=== PATIENT | female | born 1940 | race Caucasian/White ===

== ENCOUNTER 2023-03-26 12:16 | Outpatient (OUT) | payer MEDICARE, SELFPAY ==
--- NOTE | 2023-03-26 12:29 | US_ITS ---
[address] [address] Patient Name: SURY GUTIERREZ MRN: [id number] date: 1940 Sex: F Assigned Patient Location: [facility] Current Patient Location: Accession/Order Number: [id number] Exam Date: 03/26/2023 12:30 Report Date: 03/30/2023 07:22 At the request of: DONAL RIVAS Procedure: US venous doppler LE RT EXAMINATION: US venous doppler LE RT HISTORY: Right Leg Pain M79.604, Localized Edema R60.0 COMPARISON: No relevant comparison available. TECHNIQUE: Grayscale, color and Doppler ultrasound FINDINGS: Region: Right leg From his: None Flow: Normal Augmentation: Normal Compressibility: Normal 5.3 cm complex fluid collection medial popliteal fossa, a popliteal cyst is favored US/US venous doppler LE RT IMPRESSION: No deep or superficial vein thrombus in the right leg *Exam performed in accordance with [facility] practice guidelines- Peripheral venous ultrasound, December 07, 2009. Electronically authenticated by: FLORINDA ROMERO Date: 03/30/2023 07:22
== END 2023-03-26 12:17 | disposition home or self-care (01) ==
LOC: RAD 12:21
PROVIDERS: PCP Family Medicine; Visit Provider Family Medicine
DX: R60.0 Localized edema (principal); M79.604 Pain in right leg
CPT/HCPCS: 93971

== ENCOUNTER 2023-04-21 16:27 | Emergency (ER) | payer MEDICARE, SELFPAY ==
[2023-04-21 16:36] VITALS: BP 161/79; PULSE 82; RESP 16; O2SAT 95; BMI 28.3
--- NOTE | 2023-04-21 16:59 | ED_ITS ---
Documented by User: MALINI Haro 04/21/23 17:50 HPI - General Adult General Chief complaint: GI Bleed Stated complaint: BLOOD IN STOOL Time Seen by Provider: 04/21/23 16:46 Source: patient and family Mode of arrival: walk-in Limitations: no limitations History of Present Illness HPI narrative: patient is an 83-year-old female who presents to the emergency department for the evaluation of rectal bleeding that she noted while wiping. She states she urinated normally and while wiping herself noted bright red blood per rectum. She denies any abdominal pain, fevers, chills, nausea, vomiting. She has no history of issues with rectal bleeding. She has not had any continued active bleeding, it was only with wiping. She has not passed any clots. She was not straining to urinate and has not been straining to have a bowel movement although daughter reports she does have a history of constipation in the past. She has mild dementia but is able to answer questions appropriately. Related Data Previous Rx's Medication Instructions Recorded hydrocortisone 1 %-pramoxine 1 % 1 applic NE TID PRN hemorrhoids 04/21/23 rectal foam (Proctofoam HC) #10 grams Allergies Allergy/AdvReac Type Severity Reaction Status Date / Time No Known Drug Allergies Allergy Verified 04/21/23 16:36 Review of Systems ROS Constitutional Denies: fever or chills Ears, nose, mouth, and throat Denies: throat pain Cardiovascular Denies: chest pain Respiratory Denies: shortness of breath or cough Gastrointestinal Denies: abdominal pain, nausea or vomiting Musculoskeletal Denies: back pain or neck pain Neurological Denies: headache Hematologic/Lymphatic Denies: easy bruising Allergic/Immunologic Denies: hives PFSH PFS Social History Smoking status: Never smoker Exam Narrative Exam Narrative: Gen.: Awake, alert, in no distress; resting comfortably on exam cart Head: Normocephalic, atraumatic ENT: Moist mucous membranes Respiratory: No respiratory distress Gastrointestinal: Abdomen is soft, nondistended and nontender to palpation Rectal: rectum with a swollen hemorrhoid but no clots or thrombosis noted,with two other associated flat hemorrhoids noted. No active bleeding. No masses appreciated in the rectum. Extremities: Moves extremities equally, no injuries noted Psych: Normal mood and affect Neuro: No focal neuro deficit Skin: Warm, dry, intact Constitutional Vital Signs, click to edit/add: Last Vital Signs Pulse 82 04/21/23 16:36 Resp 16 04/21/23 16:36 BP 161/79 H 04/21/23 16:36 Pulse Ox 95 04/21/23 16:36 O2 Del Method Room Air 04/21/23 16:36 Course Vital Signs Vital signs: Vital Signs Pulse Rate 82 04/21/23 16:36 Respiratory Rate 16 04/21/23 16:36 Blood Pressure 161/79 H 04/21/23 16:36 Pulse Oximetry 95 04/21/23 16:36 Oxygen Delivery Method Room Air 04/21/23 16:36 Pulse Rate 82 04/21/23 16:36 Respiratory Rate 16 04/21/23 16:36 Blood Pressure 161/79 H 04/21/23 16:36 Pulse Oximetry 95 04/21/23 16:36 Oxygen Delivery Method Room Air 04/21/23 16:36 Medical Decision Making [facility] Narrative Medical decision making narrative: rectal exam shows the patient has a swollen hemorrhoid that is not thrombosed, likely the source of her bleeding. no gross blood on urine specimen, and no evidence of urinary tract infection. Abdomen is soft and benign in the Emergency Room. CBC is within normal limits. Patient will be given Proctofoam and a general surgery referral for her hemorrhoids. Return to the emergency department if symptoms change or worsen. Medical Records Medical records reviewed: Yes I reviewed the patient's medical records Lab Data Lab results reviewed: Yes I reviewed the patient's lab results Labs: Lab Results 04/21/23 04/21/23 Range/Units 17:05 17:31 WBC 9.6 (4.0-11.0) 10^3/uL RBC 5.08 (4.20-5.40) 10^6/uL Hgb 13.0 (12.0-16.0) g/dL Hct 42.0 (36.0-48.0) % MCV 82.7 (81.0-99.0) fL MCH 25.6 L (26.7-34.0) pg MCHC 31.0 (29.9-35.2) g/dL RDW 15.3 H (11.0-15.0) % Plt Count 311 (150-450) 10^3/uL MPV 10.0 (9.5-13.5) fL Neut % (Auto) 77.4 H (43.0-75.0) % Lymph % (Auto) 11.6 L (20.5-60.0) % [place] % (Auto) 8.3 (1.7-12.0) % Eos % (Auto) 1.5 (0.9-7.0) % Baso % (Auto) 0.7 (0.2-2.0) % Neut # (Auto) 7.4 H (1.4-6.5) 10^3/uL Lymph # (Auto) 1.1 L (1.2-3.8) 10^3/uL [place] # (Auto) 0.8 (0.3-0.8) 10^3/uL Eos # (Auto) 0.1 (0.0-0.7) 10^3/uL Baso # (Auto) 0.1 (0.0-0.1) 10^3/uL Abs Immat Gran (auto) 0.05 H (0.00-0.03) 10^3/uL Imm/Tot Granulo (auto) 0.5 (0.0-0.5) % Urine Color Lt. yellow (YELLOW) Urine Clarity Clear (CLEAR) Urine pH 5.5 (5.0-9.0) Ur Specific [place] 1.020 (1.005-1.025) Urine Protein Negative (NEG/TRACE) mg/dL Urine Glucose (UA) Negative (NEGATIVE) mg/dL Urine Ketones Negative (NEGATIVE) mg/dL Urine Occult Blood Trace-i (NEGATIVE) Urine Nitrite Negative (NEGATIVE) Urine Bilirubin Negative (NEGATIVE) Urine Urobilinogen 0.2 (0.2-1.0) EU/dL Ur Leukocyte Esterase Negative (NEGATIVE) Urine RBC 0-2 (0-2) #/HPF Urine WBC None seen (NONE SEEN) #/HPF Ur Squamous Epith Cells Rare (NONE/RARE) #/LPF Urine Crystals None seen (None Seen) #/HPF Urine Bacteria Trace A (NONE SEEN) #/HPF Urine Casts None seen (NONE SEEN) #/LPF Urine Mucus None seen (NONE SEEN) Ur Culture Indicated? No Discharge Plan Discharge Chief Complaint: GI Bleed Clinical Impression: Hemorrhoids Patient Disposition: Home, Self-Care Time of Disposition Decision: 17:47 Condition: Good Prescriptions / Home Meds: New Proctofoam HC 1-1 % foam 1 applic NE TID PRN (Reason: hemorrhoids) Qty: 10 0RF Instructions: Hemorrhoids (ED), Rectal Bleeding (ED) Additional Instructions: Follow up with general surgery - Dr. Molina [phone] Stand Alone Forms: Portal Instructions Referrals: Ricky Leung MD [Primary Care Provider] - 1 week Discharge Date/Time: 04/21/23 18:05 Documented by User: Tyrell Nichols MD 04/21/23 19:53 HPI - General Adult General Chief complaint: GI Bleed Stated complaint: BLOOD IN STOOL Time Seen by Provider: 04/21/23 16:46 Related Data Previous Rx's Medication Instructions Recorded hydrocortisone 1 %-pramoxine 1 % 1 applic NE TID PRN hemorrhoids 04/21/23 rectal foam (Proctofoam HC) #10 grams Allergies Allergy/AdvReac Type Severity Reaction Status Date / Time No Known Drug Allergies Allergy Verified 04/21/23 16:36 PFSH PFSH Social History Smoking status: Never smoker Exam Constitutional Vital Signs, click to edit/add: Last Vital Signs Pulse 82 04/21/23 16:36 Resp 16 04/21/23 16:36 BP 161/79 H 04/21/23 16:36 Pulse Ox 95 04/21/23 16:36 O2 Del Method Room Air 04/21/23 16:36 Course Vital Signs Vital signs: Vital Signs Pulse Rate 82 04/21/23 16:36 Respiratory Rate 16 04/21/23 16:36 Blood Pressure 161/79 H 04/21/23 16:36 Pulse Oximetry 95 04/21/23 16:36 Oxygen Delivery Method Room Air 04/21/23 16:36 Pulse Rate 82 04/21/23 16:36 Respiratory Rate 16 04/21/23 16:36 Blood Pressure 161/79 H 04/21/23 16:36 Pulse Oximetry 95 04/21/23 16:36 Oxygen Delivery Method Room Air 04/21/23 16:36 Medical Decision Making MDM Narrative Medical decision making narrative: rectal exam shows the patient has a swollen hemorrhoid that is not thrombosed, likely the source of her bleeding. no gross blood on urine specimen, and no evidence of urinary tract infection. Abdomen is soft and benign in the Emergency Room. CBC is within normal limits. Patient will be given Proctofoam and a general surgery referral for her hemorrhoids. Return to the emergency department if symptoms change or worsen. I, Dr Nichols, have reviewed the above progress note and course of action in the ER; agree with the above. I have personally seen and evaluated this patient, gone over history and physical, and discussed disposition and treatment plan with the patient. Lab Data Labs: Lab Results 04/21/23 04/21/23 Range/Units 17:05 17:31 WBC 9.6 (4.0-11.0) 10^3/uL RBC 5.08 (4.20-5.40) 10^6/uL Hgb 13.0 (12.0-16.0) g/dL Hct 42.0 (36.0-48.0) % MCV 82.7 (81.0-99.0) fL MCH 25.6 L (26.7-34.0) pg MCHC 31.0 (29.9-35.2) g/dL RDW 15.3 H (11.0-15.0) % Plt Count 311 (150-450) 10^3/uL MPV 10.0 (9.5-13.5) fL Neut % (Auto) 77.4 H (43.0-75.0) % Lymph % (Auto) 11.6 L (20.5-60.0) % [place] % (Auto) 8.3 (1.7-12.0) % Eos % (Auto) 1.5 (0.9-7.0) % Baso % (Auto) 0.7 (0.2-2.0) % Neut # (Auto) 7.4 H (1.4-6.5) 10^3/uL Lymph # (Auto) 1.1 L (1.2-3.8) 10^3/uL [place] # (Auto) 0.8 (0.3-0.8) 10^3/uL Eos # (Auto) 0.1 (0.0-0.7) 10^3/uL Baso # (Auto) 0.1 (0.0-0.1) 10^3/uL Abs Immat Gran (auto) 0.05 H (0.00-0.03) 10^3/uL Imm/Tot Granulo (auto) 0.5 (0.0-0.5) % Urine Color Lt. yellow (YELLOW) Urine Clarity Clear (CLEAR) Urine pH 5.5 (5.0-9.0) Ur Specific [place] 1.020 (1.005-1.025) Urine Protein Negative (NEG/TRACE) mg/dL Urine Glucose (UA) Negative (NEGATIVE) mg/dL Urine Ketones Negative (NEGATIVE) mg/dL Urine Occult Blood Trace-i (NEGATIVE) Urine Nitrite Negative (NEGATIVE) Urine Bilirubin Negative (NEGATIVE) Urine Urobilinogen 0.2 (0.2-1.0) EU/dL Ur Leukocyte Esterase Negative (NEGATIVE) Urine RBC 0-2 (0-2) #/HPF Urine WBC None seen (NONE SEEN) #/HPF Ur Squamous Epith Cells Rare (NONE/RARE) #/LPF Urine Crystals None seen (None Seen) #/HPF Urine Bacteria Trace A (NONE SEEN) #/HPF Urine Casts None seen (NONE SEEN) #/LPF Urine Mucus None seen (NONE SEEN) Ur Culture Indicated? No Discharge Plan Discharge Chief Complaint: GI Bleed Clinical Impression: Hemorrhoids Patient Disposition: Home, Self-Care Time of Disposition Decision: 17:47 Condition: Good Prescriptions / Home Meds: New Proctofoam HC 1-1 % foam 1 applic NE TID PRN (Reason: hemorrhoids) Qty: 10 0RF Instructions: Hemorrhoids (ED), Rectal Bleeding (ED) Additional Instructions: Follow up with general surgery - Dr. Molina [phone] Stand Alone Forms: Portal Instructions Referrals: Ricky Leung MD [Primary Care Provider] - 1 week Discharge Date/Time: 04/21/23 18:05
[2023-04-21 17:27] LABS: Basophils Absolute Auto 0.1 10^3/uL (0.0-0.1); Basophils Percent Auto 0.7 % (0.2-2.0); Eosinophils Absolute Auto 0.1 10^3/uL (0.0-0.7); Eosinophils Percent Auto 1.5 % (0.9-7.0); Immature Granulocytes Abs Auto 0.05 10^3/uL (0.00-0.03); Immature Granulocytes Pct Auto 0.5 % (0.0-0.5); Lymphocytes Absolute Auto 1.1 10^3/uL (1.2-3.8); Lymphocytes Percent Auto 11.6 % (20.5-60.0); Mean Corpuscular Hemoglobin 25.6 pg (26.7-34.0); Mean Corpuscular Volume 82.7 fL (81.0-99.0); Monocytes Absolute Auto 0.8 10^3/uL (0.3-0.8); Monocytes Percent Auto 8.3 % (1.7-12.0); Neutrophils Absolute Auto 7.4 10^3/uL (1.4-6.5); Neutrophils Percent Auto 77.4 % (43.0-75.0); Platelet Count 311 10^3/uL (150-450); Red Blood Count 5.08 10^6/uL (4.20-5.40); Red Cell Distribution Width 15.3 % (11.0-15.0); White Blood Count 9.6 10^3/uL (4.0-11.0)
[2023-04-21 17:44] LABS: Bilirubin Urine NEGATIVE (NEGATIVE); Blood Urine TRACE-I (NEGATIVE); Clarity Urine CLEAR (CLEAR); Color Urine LT. YELLOW (YELLOW); Glucose Urine UA NEGATIVE (NEGATIVE); Ketones Urine NEGATIVE (NEGATIVE); Leukocyte Esterase Urine NEGATIVE (NEGATIVE); Nitrite Urine NEGATIVE (NEGATIVE); Protein Urine NEGATIVE (NEG/TRACE); Urobilinogen Urine 0.2 EU/dL (0.2-1.0); pH Urine 5.5 (5.0-9.0)
[2023-04-21 17:45] LABS: Urine Microscopic Indicated YES
[2023-04-21 17:49] LABS: Bacteria Urine TRACE #/HPF (NONE SEEN); Cast Seen? NONE SEEN #/LPF (NONE SEEN); Crystals Seen? None Seen #/HPF (None Seen); Mucus Urine NONE SEEN (NONE SEEN); RBC Urine 0-2 #/HPF (0-2); Squamous Epithelial Cell Urine RARE #/LPF (NONE/RARE); WBC Urine NONE SEEN #/HPF (NONE SEEN)
[2023-04-21 17:50] LABS: Urine Culture Indicated NO
== END 2023-04-21 18:05 | disposition home or self-care (01) ==
PROVIDERS: Physician Assistant; Emergency Provider Emergency Medicine; PCP Family Medicine
DX: K64.9 Unspecified hemorrhoids (principal); F03.90 Unspecified dementia, unspecified severity, without behavioral disturbance, psychotic disturbance, mood disturbance, and anxiety
CPT/HCPCS: 36415; 81001; 81003; 85025; 99284

== ENCOUNTER 2023-07-09 12:24 | Outpatient (OUT) | payer MEDICARE, SELFPAY ==
--- NOTE | 2023-07-09 | VEIN_ITS ---
Patient: SURY GUTIERREZ Exam Date: 07/09/2023 : 1940 Gender:F Ordering : DR Ricky Leung . Admission #: [id number] Family : DR FLORINDA ROMERO M.D. Order #: [id number] CLICK HERE TO VIEW EXAM RADIOLOGY REPORT PROCEDURE: VC EXT VENOUS REFLUX CROW LMTD COMPARISON: None. INDICATIONS: Edema leg R60.0 TECHNIQUE: Duplex imaging of the lower extremity to assess the deep and superficial venous system for the presence of deep or superficial venous incompetence and to document the location and severity of disease. The study includes evaluation of the great saphenous vein (GSV), anterior accessory saphenous vein (AASV) and small saphenous vein (SSV). Patient scanned in reverse Trendelenburg and standing. FINDINGS: RIGHT LOWER EXTREMITY: Saphenofemoral Junction Reflux: Yes 6.7mm 0.9 sec GSV: Diam (mm) Reflux/ Time (sec) Proximal Thigh 3.3 Yes 0.8 Mid Thigh 2.7 Yes 0.9 Distal Thigh 1.6 No Prox Calf 2.9 No Mid Calf 2.0 No Saphenopopliteal Junction Reflux: 2.7mm Yes 0.4 SSV: Proximal Calf 1.8 Yes Mid Calf 1.6 No AASV: Proximal Thigh 4.2 No Mid Thigh 3.2 0.9 Distal Thigh Thrombi: No acute or chronic thrombus visualized Compressibility: Normal Flow: Normal Preforator: Dist/med calf 1.6mm with 0s reflux. Tech Note: Incompetent SFJ and GSV. Patent varicose vein mid/med calf 2.2mm with 0s reflux. Patent varicose vein medial knee 2.1mm with 0s reflux. LEFT LOWER EXTREMITY: Saphenofemoral Junction Reflux: Yes 7.6 mm 1.6 sec GSV: Diam (mm) Reflux/Time (sec) Proximal Thigh 5.9 Yes 1.8 Mid Thigh 4.3 N/A Distal Thigh 2.4 No Prox Calf 2.5 No Mid Calf 1.7 No Saphenopopliteal Junction Relux: 1.3 mm No SSV: Proximal Calf 1.2 No Mid Calf 1.8 AASV: Proximal Thigh 3.6 No Mid Thigh 1.7 No Distal Thigh Thrombi: No acute or chronic thrombus visualized Compressibility: Normal Flow: Normal Master Scheduler: Dist/med calf 2.5mm with 0s reflux. Tech Note: Incompetent GSV. Patent varicose vein prox/med calf 1.8mm with 0s reflux. CONCLUSION: 1. Mild reflux within the proximal and mid right great saphenous vein and the mid right anterior accessory saphenous vein, but no abnormal dilation of the vessels. This would not be amendable to treatment. 2. Mild dilation of the proximal left great saphenous vein and abnormal reflux within this segment. Since this is the only abnormal segment that would qualify for treatment and there are no significant branching varicosities, continued follow-up is recommended at this time. Dictated by: Shane Garcia M.D. on 07/12/2023 at 09:47 Approved by: Shane Garcia M.D. on 07/12/2023 at 10:09
== END 2023-07-09 12:25 | disposition home or self-care (01) ==
PROVIDERS: PCP Family Medicine; Visit Provider Radiology Diagnostic Radiology
DX: R60.0 Localized edema (principal)
CPT/HCPCS: 93970

== ENCOUNTER 2023-08-13 09:56 | Outpatient (OUT) | payer MEDICARE, SELFPAY ==
--- NOTE | 2023-08-13 10:45 | CA_ITS ---
Patient Name: SURY GUTIERREZ MR#: [id number] : 1940 Exam Date: 08/13/2023 Ordering Doctor: DR Ricky Leung . ECHOCARDIOGRAM REPORT PROCEDURE: CA ECHO DOPPLER COMPLETE INDICATIONS: Bilateral lower extremity edema, hypertension, diabetes COMPARISON: None. DESCRIPTION: COMPLETE ECHOCARDIOGRAM Real-time transthoracic echocardiography with 2D, M-mode, spectral and color flow Doppler performed. QUALITY: Technical quality was good. 65 , 175# , BSA 1.87 m2 LEFT VENTRICLE: Normal chamber size. Mild proximal septal hypertrophy (sigmoid septum). Normal systolic function. LV EF: Normal left ventricular ejection fraction, (>55%). DIASTOLIC: Normal diastolic function. ATRIAL SEPTUM: LEFT ATRIUM: Normal chamber size. RIGHT ATRIUM: Normal chamber size. RIGHT VENTRICLE: Normal chamber size. Normal right ventricular systolic function. TRICUSPID VALVE: Normal mobility and thickness. No stenosis with mild regurgitation. Doppler studies reveal mildly (35-45) elevated right sided pressures. RVSP 41 mmHg MITRAL VALVE: Normal mobility and thickness. No evidence of mitral valve stenosis. There is no mitral annular calcification. Trivial mitral regurgitation. AORTIC VALVE: Normal trileaflet appearance. No visible sclerosis. Normal leaflet mobility. No evidence of aortic valve stenosis. Trivial aortic regurgitation. AORTIC ROOT: Normal diameter and appearance. PULMONIC VALVE: Normal thickness and mobility. No stenosis. Trivial regurgitation. PERICARDIUM: No evidence of pericardial effusion. IVC: Collapses with inspirations. IVC is normal in size. PLEURA: CONCLUSION: 1. Normal left ventricular size and systolic function. LVEF is 55 to 60%. 2. Normal right ventricular size and systolic function. 3. Normal diastolic function. 4. No significant valvular dysfunction. 5. Mildly elevated right-sided pressures. Adult Echocardiography Procedure Report Left Ventricle LVEDD (3.7 - 5.6 cm): 4.04 cm LVESD (2.2 - 4.0 cm): 2.67 cm LVIVS thickness (0.6 - 1.2 cm): 1.07 cm LVPW thickness (0.5 - 1.0 cm): 0.82 cm e': 0.12 m/s E - e': 4.91 LVOT Max Gradient: 4.32 mm[Hg] LVOT Area (cm2): 1.04 m/s Peak Velocity (LVOT): 1.04 m/s Mean Velocity (LVOT): 0.59 m/s LVOT Diameter 2.16 cm Left Atrium LA Volume Index (2D A2C): 31.11 ml/m2 Left Atrium Systolic Dimension: 3.75 cm Mitral Valve MV E to A Ratio: 0.77 Mitral Valve A-Wave Peak Velocity: 0.73 m/s Mitral Valve E-Wave Peak Velocity: 0.57 m/s Right Ventricle Aorta AO Root Diam: 2.64 cm Ascending Ao Diam: 2.82 cm Aortic Valve AoV Area (Peak Chandu): 3.32 cm2, 3.32 cm2 AoV Area (VTI): 2.72 cm2, 2.72 cm2 Peak Velocity(Antegrade Flow): 1.14 m/s Peak Gradient(Antegrade Flow): 5.23 mm[Hg] Mean Velocity(Antegrade Flow): 0.81 m/s Mean Gradient(Antegrade Flow): 2.94 mm[Hg] Velocity Time Integral: 30.51 cm Tricuspid Valve Peak Velocity (Regurgitant Flow): 2.54 m/s, 3.08 m/s, 3.04 m/s Pulmonic Valve Peak Velocity: 0.91 m/s Peak Gradient: 3.65 mm[Hg], 3.01 mm[Hg] Right Atrium Right Atrium Systolic Pressure: 32.62 ml, 32.62 ml Dictated by: Alessandro Brandon M.D. on 08/13/2023 at 20:02 Approved by: Alessandro Brnadon M.D. on 08/13/2023 at 20:05
== END 2023-08-13 09:57 | disposition home or self-care (01) ==
LOC: CARD 09:56
PROVIDERS: PCP Family Medicine; Visit Provider Family Medicine
DX: R60.0 Localized edema (principal); I10 Essential (primary) hypertension
CPT/HCPCS: 93306